=== PATIENT | female | born 1950 | race Caucasian/White ===

== ENCOUNTER 2016-11-19 14:11 | Inpatient (IN) | payer OTHER, BC ==
[~2016-11-19] VITALS: Ht 160 cm; Wt 60.0 kg
[~2016-11-19 14:11] MED LIST: ACETAMINOPHEN325 M1 PO; ADVIL,NUPRIN,M200 MG PO; ASCORBIC ACID500 M3 PO; AUBAGIO14 MG PO; BACLOFEN20 MG PO; BACTRIM,SEPT1 TABLET PO; BISAC-EVAC10 MG PR; CALCIUM 600 +1 EA11 PO; CALCIUM 600 +1 EA17 PO; CAVILON DURABLE92 G1 TP; CEFTIN500 MG PO; CEPHALEXIN500 MG PO; CIPRO500 MG PO; CLARITIN-D 21 TABLET PO; COLACE100 MG PO; CRANBERRY425 MG PO; CRANBERRY500 M2 PO; DAILY VALUE1 EACH PO; DULCOLAX10 MG PR; ENEMA133 M2 PR; FISH OIL 1,0001 EA10 PO; FISH OIL 1,0001 EA11 PO; FISH OIL 1,0001 EAC7 PO; FLEET ENEMA-AD118 ML PR; FOLIC ACID1 MG PO; FOSAMAX70 MG PO; IBUPROFEN600 MG PO; KEFLEX500 MG PO; LEVAQUIN500 MG PO; LEVO-T50 MCG PO; LEVOTHYROXINE25 MCG PO; LORATADINE10 M2 PO; MILK OF MAGN PO; MOTRIN600 MG PO; MUCINEX1200 MG PO; OMEGA-31000 M1 PO; PANTOPRAZOLE SO40 MG PO; PRAVACHOL20 MG PO; SANTYL30 GM TP; SENNA PLUS TAB1 EACH PO; SENNA8.6 MG PO; SERTRALINE HCL100 MG PO; STRESS FORMULA; STRESS-C WITH1 EAC1 PO; SUPPLEMENT; SUPPLEMENT PO; SYNTHROID25 MCG PO; TIZANIDINE HCL4 M1 PO; TIZANIDINE HCL4 MG PO; TYLENOL REGULA325 MG PO; TYLENOL WITH C1 EACH PO; ZANAFLEX4 M1 PO; ZIN; ZINC SULFATE220 M1 PO; ZOLOFT100 MG PO; [UNRECOGNIZED DRUG - OTHER]; [UNRECOGNIZED DRUG - OTHER] PO
[2016-11-19 14:50] LABS: ADD MIUA? YES; BILIRUBIN NEGATIVE; BLOOD SMALL; COLOR YELLOW ((YELLOW)); GLUCOSE (STRIP) NEGATIVE; KETONES NEGATIVE; LEUKOCYTES LARGE; NITRITE POSITIVE; PROTEIN (STRIP) 100; SPECIFIC GRAVITY 1.009 (1.000-1.030); UROBILINOGEN 0.2 MG/DL (0.2-1.0)
[2016-11-19 14:51] LABS: BASOPHIL COUNT 0.1 K/uL (0-0.1); EOSINOPHIL (%) 0.3 % (0-5); EOSINOPHIL COUNT 0.1 K/uL (0-0.3); HEMATOCRIT 34.5 % (36.0-46.0); IMMATURE GRANULOCYTE (%) 0.9 % (0.0-0.7); IMMATURE GRANULOCYTE COUNT 0.2 K/uL; INSTRUMENT ABS NEUTROPHIL CT 23.2 K/uL; LYMPHOCYTE COUNT 0.7 K/uL (1.0-2.8); MCH 24.5 PG (29.0-34.0); MCHC 31.6 G/DL (30.0-36.0); MCV 77.7 FL (83-99); MEAN PLAT.VOLUME 9.2 uM^3 (9.5-12.4); MONOCYTE (%) 5.5 % (3-12); MONOCYTE COUNT 1.4 K/uL (0-0.8); NEUTROPHIL (%) 90.5 % (45-76); NEUTROPHIL COUNT 23.2 K/uL (1.8-6.4); PLATELET COUNT 260 K/uL (156-360); RBC DIS.WIDTH-CV 17.3 % (11.8-14.6); RBC DIS.WIDTH-SD 48.6 % (39-53); RED BLOOD COUNT 4.44 M/uL (3.80-5.20); WHITE BLOOD COUNT 25.6 K/uL (4.1-10.2)
[2016-11-19 15:01] LABS: CHLORIDE 105 mEq/L (99-109); INTER. NORMALIZED RATIO 1.2; POTASSIUM 4.1 mEq/L (3.7-5.4); PROTHROMBIN TIME 12.1 (9.2-11.2); PTT 30.7 (25-32); SODIUM 139 mEq/L (136-147)
[2016-11-19 15:05] LABS: ANION GAP 9 MEQ/L (2-14); TOTAL BILIRUBIN 0.6 mg/dL (0.0-1.0)
[2016-11-19 15:06] LABS: GLUCOSE 124 mg/dL (70-99)
[2016-11-19 15:07] LABS: ALKALINE PHOSPHATASE 104 IU/L (3-129); GFR ESTIMATE (CALCULATED) 48 mL/min/
[2016-11-19 15:08] LABS: UREA NITROGEN (BUN) 44 mg/dL (9-23)
[2016-11-19 15:11] LABS: BACTERIA 2+ /HPF; CALCIUM OXALATE CRYSTALS RARE /HPF; CASTS NONE SEEN /LPF; CRYSTALS PRESENT; EPITHELIAL CELLS NONE SEEN /HPF; MUCUS NONE SEEN /LPF; UCUL ADDED? YES; WHITE BLOOD CELLS TNTC /HPF (0-5)
[2016-11-19] MEDS ORDERED: ZANAFLEX4 MG PO (16:54)
[2016-11-19] MEDS ORDERED: DULCOLAX10 MG PR (16:55)
[2016-11-19] MEDS ORDERED: C 500 MG TIMED500 MG PO (16:55)
[2016-11-19] MEDS ORDERED: OMEPRAZOLE20 MG PO (16:56)
[2016-11-19] MEDS ORDERED: JUVEN PACKET1 EACH PO (16:56)
[2016-11-19] MEDS ORDERED: CLARITIN10 M3 PO (16:57)
[2016-11-19 18:15] VITALS: BP 101/54
[2016-11-19 23:09] VITALS: BP 101/52
[2016-11-20] VITALS (7 sets, daily range): BP systolic 97–168; BP diastolic 54–73
[2016-11-20 07:00] LABS: BASOPHIL COUNT 0.1 K/uL (0-0.1); EOSINOPHIL (%) 1.2 % (0-5); EOSINOPHIL COUNT 0.2 K/uL (0-0.3); HEMATOCRIT 31.9 % (36.0-46.0); IMMATURE GRANULOCYTE (%) 0.8 % (0.0-0.7); IMMATURE GRANULOCYTE COUNT 0.1 K/uL; INSTRUMENT ABS NEUTROPHIL CT 14.4 K/uL; LYMPHOCYTE COUNT 2.1 K/uL (1.0-2.8); MCH 24.9 PG (29.0-34.0); MCHC 31.3 G/DL (30.0-36.0); MCV 79.6 FL (83-99); MEAN PLAT.VOLUME 9.7 uM^3 (9.5-12.4); MONOCYTE (%) 7.4 % (3-12); MONOCYTE COUNT 1.3 K/uL (0-0.8); NEUTROPHIL (%) 78.8 % (45-76); NEUTROPHIL COUNT 14.4 K/uL (1.8-6.4); PLATELET COUNT 244 K/uL (156-360); RBC DIS.WIDTH-CV 17.8 % (11.8-14.6); RBC DIS.WIDTH-SD 51.8 % (39-53); RED BLOOD COUNT 4.01 M/uL (3.80-5.20); WHITE BLOOD COUNT 18.2 K/uL (4.1-10.2)
[2016-11-20 07:22] LABS: ANION GAP 8 MEQ/L (2-14); CHLORIDE 110 MEQ/L (99-109); GFR ESTIMATE (CALCULATED) > 59 mL/min/; POTASSIUM 4.2 MEQ/L (3.7-5.4); SAMPLE HEMOLYSIS CHECK 0; SAMPLE ICTERIC CHECK 0; SAMPLE LIPEMIA CHECK 0; SODIUM 145 MEQ/L (136-147); UREA NITROGEN (BUN) 30 mg/dL (9-23)
[2016-11-20 07:23] LABS: GLUCOSE 75 mg/dL (70-99)
[2016-11-20] MEDS ORDERED: PRAVACHOL80 MG PO (14:01)
[2016-11-20] MEDS ORDERED: VITAMIN D35000 UNIT PO (14:03)
[2016-11-20] MEDS ORDERED: SUPER B-50 COM1 EACH PO (14:03)
[2016-11-20] MEDS ORDERED: CALCIUM 600 +1 EAC3 PO (14:03)
[2016-11-20] MEDS ORDERED: CLARITIN-D 21 TABLET PO (14:04)
[2016-11-20] MEDS ORDERED: FOSAMAX70 MG PO (14:04)
[2016-11-20] MEDS ORDERED: ONE DAILY FOR1 EAC1 PO (14:04)
[2016-11-21 00:35] VITALS: BP 99/50
[2016-11-21 04:05] VITALS: BP 143/63
[2016-11-21 07:00] VITALS: BP 114/56
[2016-11-21 11:10] VITALS: BP 134/60
[2016-11-21 20:22] VITALS: BP 111/54
[2016-11-21 23:32] VITALS: BP 121/59
[2016-11-22 03:59] VITALS: BP 117/58
[2016-11-22 08:24] VITALS: BP 138/66
[2016-11-22 10:09] LABS: GFR ESTIMATE (CALCULATED) > 59 mL/min/; UREA NITROGEN (BUN) 18 mg/dL (9-23)
[2016-11-22 12:46] LABS: EOSINOPHIL COUNT 0.4 K/uL (0-0.3); HEMATOCRIT 32.5 % (36.0-46.0); IMMATURE GRANULOCYTE (%) 0.6 % (0.0-0.7); IMMATURE GRANULOCYTE COUNT 0.1 K/uL; INSTRUMENT ABS NEUTROPHIL CT 6.5 K/uL; LYMPHOCYTE COUNT 1.4 K/uL (1.0-2.8); MCH 24.1 PG (29.0-34.0); MCHC 30.5 G/DL (30.0-36.0); MCV 79.3 FL (83-99); MEAN PLAT.VOLUME 8.9 uM^3 (9.5-12.4); MONOCYTE (%) 7.8 % (3-12); MONOCYTE COUNT 0.7 K/uL (0-0.8); NEUTROPHIL (%) 71.9 % (45-76); NEUTROPHIL COUNT 6.5 K/uL (1.8-6.4); PLATELET COUNT 242 K/uL (156-360); RBC DIS.WIDTH-SD 48.8 % (39-53); WHITE BLOOD COUNT 9.1 K/uL (4.1-10.2)
[2016-11-22 18:39] VITALS: BP 144/65
[2016-11-22 20:03] VITALS: BP 134/70
[2016-11-23 00:46] VITALS: BP 108/56
[2016-11-23 07:10] VITALS: BP 137/69
[2016-11-23 16:20] VITALS: BP 166/80
[2016-11-23 19:32] VITALS: BP 118/56
[2016-11-23 23:15] VITALS: BP 139/65
[2016-11-24 07:20] VITALS: BP 138/63
[2016-11-24 15:15] VITALS: BP 131/65
[2016-11-24 22:54] VITALS: BP 123/58
[2016-11-25 09:02] VITALS: BP 131/73
[2016-11-25] MEDS ORDERED: BACTRIM,SEPT1 TABLET PO (11:30)
== END 2016-11-25 14:05 | DRG 689 ==
LOC: EME 14:11 → 5EAST 15:53 → EDOF 15:53 → 5EAST 17:58
PROVIDERS: Emergency Medicine; Internal Medicine; Internal Medicine Infectious Disease
DX: N39.0 Urinary tract infection, site not specified (principal); M62.81 Muscle weakness (generalized); G35 Multiple sclerosis; M86.60 Other chronic osteomyelitis, unspecified site; L89.154 Pressure ulcer of sacral region, stage 4; L89.219 Pressure ulcer of right hip, unspecified stage; G82.50 Quadriplegia, unspecified; E78.5 Hyperlipidemia, unspecified; E03.9 Hypothyroidism, unspecified; N18.9 Chronic kidney disease, unspecified; L89.229 Pressure ulcer of left hip, unspecified stage; L89.899 Pressure ulcer of other site, unspecified stage; B35.1 Tinea unguium; B96.5 Pseudomonas (aeruginosa) (mallei) (pseudomallei) as the cause of diseases classified elsewhere; Z87.891 Personal history of nicotine dependence
CPT/HCPCS: 36415; 71010; 72197; 80048; 80053; 80202; 81003; 82565; 83605; 84520; 85025; 85610; 85730; 87040; 87070; 87075; 87077; 87086; 87147; 87186; 87205; 99281; 99285; J0696; J1650; J2543; J3260; J3370; J7030; J7050